=== PATIENT | male | born 1945 | race Caucasian/White ===

== ENCOUNTER 2023-02-26 11:17 | Day surgery (SDC) | payer MEDICARE, OTHER ==
[~2023-02-26 11:17] MED LIST: Lactated Ringers 1,000 ML IV SCH; Sodium Chloride 0.9% 10 ML Syringe FLUSH PRN; Sodium Chloride 0.9% 10 ML Syringe FLUSH SCH
[2023-02-26 12:28] LABS: INR 1.04; PROTHROMBIN TIME 11.1 SECONDS (9.7-12.0)
[2023-02-26] MEDS ORDERED: Lidocaine 1% 4 ML ONE (12:37)
[2023-02-26] MEDS ORDERED: Propofol 200 MG/20 ML SDV ONE ×3 (12:38→13:51)
[2023-02-26] MEDS ORDERED: fentaNYL 100 MCG/2 ML SDV ONE (12:38)
[2023-02-26] MEDS ORDERED: ePHEDrine 50 MG/ML SDV ONE (13:10)
[2023-02-26] MEDS ORDERED: Phenylephrine 1% 10 MG/ML SDV ONE (13:24)
[2023-02-26] MEDS ORDERED: Metoprolol Tartrate 5 MG/5 ML SDV ONE (14:02)
== END 2023-02-26 15:15 | disposition home or self-care (01) ==
LOC: JD.SDS 11:17
PROVIDERS: ATTEND Surgery
DX: K29.80 Duodenitis without bleeding (principal); K29.70 Gastritis, unspecified, without bleeding; K22.70 Barrett's esophagus without dysplasia; K21.9 Gastro-esophageal reflux disease without esophagitis; K57.30 Diverticulosis of large intestine without perforation or abscess without bleeding; K64.8 Other hemorrhoids; K31.89 Other diseases of stomach and duodenum; E78.00 Pure hypercholesterolemia, unspecified; I13.0 Hypertensive heart and chronic kidney disease with heart failure and stage 1 through stage 4 chronic kidney disease, or unspecified chronic kidney disease; N18.30 Chronic kidney disease, stage 3 unspecified; I50.32 Chronic diastolic (congestive) heart failure; M06.9 Rheumatoid arthritis, unspecified; G89.29 Other chronic pain; M54.50 Low back pain, unspecified; M25.561 Pain in right knee; Z88.8 Allergy status to other drugs, medicaments and biological substances; Z53.09 Procedure and treatment not carried out because of other contraindication; Z79.01 Long term (current) use of anticoagulants; Z90.49 Acquired absence of other specified parts of digestive tract; Z79.82 Long term (current) use of aspirin; Z79.899 Other long term (current) drug therapy
CPT/HCPCS: 36415; 43239; 45378; 85610; J2371; J2704; J3010; J7120; 00813; 99100; J3490

== ENCOUNTER 2023-04-28 16:51 | Emergency (ER) | payer OTHER, MEDICARE ==
[2023-04-28] MEDS ORDERED: fentaNYL 100 MCG/2 ML SDV ONE ×2 (17:06→18:24)
[2023-04-28] MEDS ORDERED: Diphtheria,Pertussis(Acell),Tetanus Vaccine 0.5 ML Syringe IM ONE (17:07)
[2023-04-28] MEDS ORDERED: fentaNYL 100 MCG/2 ML SDV IVPUSH ONE ×4 (17:07→18:44)
[2023-04-28] MEDS ORDERED: Lidocaine 1% 20 ML MDV INJECT ONE (17:09)
[2023-04-28] MEDS ORDERED: Lactated Ringers 1,000 ML IV SCH (17:15)
[2023-04-28 17:23] LABS: BASOPHILS PERCENT AUTO 0.4 % (0.0-1.0); EOSINOPHILS ABSOLUTE AUTO 0.1 K/mm3 (0.0-0.4); EOSINOPHILS PERCENT AUTO 1.2 % (0.0-6.0); HEMATOCRIT 37.3 % (42.0-52.0); HEMOGLOBIN 12.1 gm/dl (14.0-18.0); IMMATURE GRAN ABSOLUTE AUTO 0.07 K/mm3 (0.00-0.05); IMMATURE GRAN PERCENT AUTO 0.6 % (0.0-0.4); LYMPHOCYTES ABSOLUTE AUTO 1.7 K/mm3 (1.0-4.8); LYMPHOCYTES PERCENT AUTO 14.5 % (24.0-44.0); MEAN CORPUSCULAR HEMOGLOBIN 32.2 pg (28.0-32.0); MEAN CORPUSCULAR HGB CONC 32.4 g/dl (32.0-36.0); MEAN CORPUSCULAR VOLUME 99.2 fl (83.0-99.0); MEAN PLATELET VOLUME 9.8 fl (9.4-12.4); MONOCYTES ABSOLUTE AUTO 1.2 K/mm3 (0.0-0.8); MONOCYTES PERCENT AUTO 10.5 % (0.0-8.0); NEUTROPHILS ABSOLUTE AUTO 8.3 K/mm3 (1.8-7.7); NEUTROPHILS PERCENT AUTO 72.8 % (41.0-71.0); PLATELET COUNT,PLT 237 K/mm3 (150-400); RED BLOOD CELL COUNT 3.76 M/mm3 (4.52-5.90); WHITE BLOOD CELL COUNT,WBC 11.38 K/mm3 (3.9-11.3)
[2023-04-28 17:39] LABS: INR 2.86; PROTHROMBIN TIME 28.3 SECONDS (9.7-12.0)
[2023-04-28 17:41] LABS: PTT,PARTIAL THROMBOPLSTIN TIME 33.6 SECONDS (21.7-31.4)
[2023-04-28] MEDS ORDERED: Iopamidol 612 MG/ML 100 ML Bottle IVPUSH ONE (18:08)
[2023-04-28] MEDS ORDERED: Sodium Chloride 0.9% 100 ML IV SCH (18:15)
[2023-04-28] MEDS ORDERED: Propofol 200 MG/20 ML SDV IVPUSH ONE (18:57)
[2023-04-28] MEDS: Acetaminophen/HYDROcodone 325-5 MG Tab PO PRN (21:29)
[2023-04-28 23:20] LABS: A/G RATIO 1.3 (1-2); ALANINE AMINOTRANSFERASE,ALT 34 U/L (16-63); ALKALINE PHOSPHATASE 108 U/L (46-116); ANION GAP 16.3 (5-15); ASPARTATE AMNIOTRANSFERASE,AST 37 U/L (15-37); BILIRUBIN TOTAL 0.8 mg/dL (0.2-1.0); BLOOD UREA NITROGEN,BUN 26 mg/dL (7-18); BUN/CREATININE RATIO 17.3 (14-18); CALCIUM 8.4 mg/dL (8.5-10.1); CARBON DIOXIDE,CO2 23 mEq/L (21-32); CHLORIDE,CL 104 mEq/L (98-107); CREATININE 1.5 mg/dL (0.7-1.3); ESTIMATED GFR 48 mL/min (>60); GLUCOSE RANDOM 109 mg/dL (70-99); LIPASE 152 U/L (16-77); POTASSIUM,K 4.3 mEq/L (3.5-5.1); SODIUM,NA 139 mEq/L (136-145)
[2023-04-28] MEDS ORDERED: Acetaminophen 325 MG Tab PO ONE (23:22)
[2023-04-29] MEDS ORDERED: HYDROmorphone 0.5 MG/0.5 ML Syringe IVPUSH ONE (01:09)
[2023-04-29] MEDS: Acetaminophen/HYDROcodone 325-5 MG Tab PO PRN (06:58)
== END 2023-04-29 07:50 | disposition home or self-care (01) ==
LOC: JD.ED 16:51
DX: S01.81XA Laceration without foreign body of other part of head, initial encounter (principal); S81.811A Laceration without foreign body, right lower leg, initial encounter; S43.004A Unspecified dislocation of right shoulder joint, initial encounter; Z23 Encounter for immunization; I12.9 Hypertensive chronic kidney disease with stage 1 through stage 4 chronic kidney disease, or unspecified chronic kidney disease; N18.9 Chronic kidney disease, unspecified; M19.90 Unspecified osteoarthritis, unspecified site; E78.00 Pure hypercholesterolemia, unspecified; Z88.8 Allergy status to other drugs, medicaments and biological substances; Z79.899 Other long term (current) drug therapy; Z79.82 Long term (current) use of aspirin; Z79.01 Long term (current) use of anticoagulants; W55.22XA Struck by cow, initial encounter
CPT/HCPCS: 12004; 12032; 23650; 36415; 70450; 70486; 71045; 71260; 72125; 72170; 73030; 73590; 74177; 80053; 83690; 85025; 85610; 85730; 86850; 86900; 86901; 90471; 90715; 96361; 96374; 96375; 99284; A9270; J1170; J2704; J3010; J7120; Q9967; 12013; 23655; J3490

== ENCOUNTER 2023-12-02 10:28 | Inpatient (IN) | payer MEDICARE, OTHER ==
[2023-12-02 11:46] LABS: BASOPHILS PERCENT AUTO 0.2 % (0.0-1.0); EOSINOPHILS PERCENT AUTO 0.1 % (0.0-6.0); HEMATOCRIT 40.1 % (42.0-52.0); HEMOGLOBIN 12.8 gm/dl (14.0-18.0); IMMATURE GRAN ABSOLUTE AUTO 0.13 K/mm3 (0.00-0.05); IMMATURE GRAN PERCENT AUTO 0.7 % (0.0-0.4); LYMPHOCYTES ABSOLUTE AUTO 1.2 K/mm3 (1.0-4.8); MEAN CORPUSCULAR HEMOGLOBIN 30.7 pg (28.0-32.0); MEAN CORPUSCULAR HGB CONC 31.9 g/dl (32.0-36.0); MEAN CORPUSCULAR VOLUME 96.2 fl (83.0-99.0); MEAN PLATELET VOLUME 9.4 fl (9.4-12.4); MONOCYTES ABSOLUTE AUTO 1.4 K/mm3 (0.0-0.8); MONOCYTES PERCENT AUTO 7.4 % (0.0-8.0); NEUTROPHILS ABSOLUTE AUTO 16.7 K/mm3 (1.8-7.7); NEUTROPHILS PERCENT AUTO 85.6 % (41.0-71.0); PLATELET COUNT,PLT 311 K/mm3 (150-400); RED BLOOD CELL COUNT 4.17 M/mm3 (4.52-5.90); WHITE BLOOD CELL COUNT,WBC 19.49 K/mm3 (3.9-11.3)
[2023-12-02] MEDS: Sodium Chloride 0.9% 1,000 ML IV STA (11:46)
[2023-12-02] MEDS: Ondansetron 4 MG/2 ML SDV IVPUSH ONE (11:47)
[2023-12-02] MEDS: Sodium Chloride 0.9% 10 ML Syringe FLUSH PRN ×2 (11:49→12:44)
[2023-12-02] MEDS: HYDROmorphone 0.5 MG/0.5 ML Syringe IVPUSH ONE (11:49)
[2023-12-02 12:10] LABS: INR 2.34; PROTHROMBIN TIME 23.5 SECONDS (9.7-12.0)
[2023-12-02 12:22] LABS: A/G RATIO 1.2 (1-2); ALBUMIN 3.9 g/dl (3.4-5.0); BILIRUBIN TOTAL 1.3 mg/dL (0.2-1.0); BUN/CREATININE RATIO 19.2 (14-18); CALCIUM 9.4 mg/dL (8.5-10.1); CREATININE 1.3 mg/dL (0.7-1.3); EST CRCL DRUG DOSING (CG) 46.77 mL/min; PROTEIN TOTAL,TP 7.1 g/dl (6.4-8.2)
[2023-12-02] MEDS: Iopamidol 612 MG/ML 100 ML Bottle IVPUSH ONE (12:34)
[2023-12-02] MEDS: cefTRIAXone 2 GM in Sodium Chloride 0.9% 100 ML IV ONE (16:08)
[2023-12-02] MEDS: Benzocaine 20% Topical Spray UD MUCMEM ONE (17:57)
[2023-12-02] MEDS ORDERED: LORazepam 2 MG/ML SDV IVPUSH PRN ×2 (19:20→23:00)
[2023-12-02] MEDS ORDERED: Meclizine 25 MG Tab PO PRN (19:28)
[2023-12-02] MEDS ORDERED: Nitroglycerin 0.4 MG Tab.SL SL PRN (19:38)
[2023-12-02] MEDS ORDERED: hydrALAZINE 20 MG/ML SDV IVPUSH PRN (19:41)
[2023-12-02] MEDS: Ondansetron 4 MG/2 ML SDV IVPUSH PRN (19:50)
[2023-12-02] MEDS ORDERED: Acetaminophen 325 MG Tab PO PRN (20:07)
[2023-12-02] MEDS: Azithromycin 500 MG in Sodium Chloride 0.9% 250 ML IV SCH (21:08)
[2023-12-02] MEDS: LORazepam 2 MG/ML SDV IVPUSH ONE ×2 (21:10→23:18)
[2023-12-02] MEDS: Enoxaparin 80 MG/0.8 ML Syringe SUBCUT SCH (21:12)
[2023-12-02] MEDS: Lactated Ringers 1,000 ML IV SCH (23:17)
[2023-12-03 07:07] LABS: HEMOGLOBIN 11.2 gm/dl (14.0-18.0); MEAN CORPUSCULAR HEMOGLOBIN 31.5 pg (28.0-32.0); MEAN CORPUSCULAR VOLUME 98.3 fl (83.0-99.0); MEAN PLATELET VOLUME 9.7 fl (9.4-12.4); PLATELET COUNT,PLT 264 K/mm3 (150-400); RED BLOOD CELL COUNT 3.56 M/mm3 (4.52-5.90); WHITE BLOOD CELL COUNT,WBC 16.12 K/mm3 (3.9-11.3)
[2023-12-03 07:44] LABS: A/G RATIO 1.1 (1-2); ALBUMIN 3.2 g/dl (3.4-5.0); ANION GAP 13.6 (5-15); BUN/CREATININE RATIO 25.4 (14-18); CALCIUM 8.8 mg/dL (8.5-10.1); CREATININE 1.3 mg/dL (0.7-1.3); EST CRCL DRUG DOSING (CG) 46.77 mL/min; MAGNESIUM 2.2 mg/dL (1.8-2.4); PHOSPHORUS 4.3 mg/dL (2.6-4.7); POTASSIUM,K 3.6 mEq/L (3.5-5.1); PROTEIN TOTAL,TP 6.1 g/dl (6.4-8.2)
[2023-12-03] MEDS: Benzonatate 100 MG Cap PO PRN (12:10)
[2023-12-03] MEDS: Potassium Chloride 20 MEQ Tab.ER PO ONE (12:10)
[2023-12-03] MEDS: cefTRIAXone 1 GM in Sodium Chloride 0.9% 100 ML IV SCH (15:10)
[2023-12-03 15:33] LABS: INR 2.06; PROTHROMBIN TIME 20.8 SECONDS (9.7-12.0)
[2023-12-03 16:34] LABS: INR 1.88; PROTHROMBIN TIME 19.1 SECONDS (9.7-12.0)
== END 2023-12-03 16:59 | disposition home or self-care (01) | DRG 388 ==
LOC: JD.ED 10:28 → JD.MS 17:00
PROVIDERS: ADMIT Student in an Organized Health Care Education/Training Program; ATTEND Student in an Organized Health Care Education/Training Program
DX: K56.609 Unspecified intestinal obstruction, unspecified as to partial versus complete obstruction (principal); J18.9 Pneumonia, unspecified organism; H54.7 Unspecified visual loss; I10 Essential (primary) hypertension; M54.9 Dorsalgia, unspecified; G89.29 Other chronic pain; M19.90 Unspecified osteoarthritis, unspecified site; M45.9 Ankylosing spondylitis of unspecified sites in spine; Z95.2 Presence of prosthetic heart valve; Z79.01 Long term (current) use of anticoagulants; Z88.8 Allergy status to other drugs, medicaments and biological substances; Z79.82 Long term (current) use of aspirin; Z79.2 Long term (current) use of antibiotics; Z79.899 Other long term (current) drug therapy; Z98.890 Other specified postprocedural states; Z90.49 Acquired absence of other specified parts of digestive tract
CPT/HCPCS: 36415; 74177; 80053; 83605; 85025; 85610; 87040 ×2; J0696; J1170; J2405; J3490 ×3; J7030; Q9967; 43752; 83735; 84100; 85027; 93005; 94760; 96361; 96365; 96375; 97161-GP; 97530-GP; 99285; 99285-25; A9270-GY; J0456; J1650; J2060; J7050; J7120